=== PATIENT | female | born 1960 | race Caucasian/White ===

== ENCOUNTER 2024-01-31 23:26 | Emergency (ER) | payer BC, SELFPAY ==
[2024-01-31 23:27] VITALS: BP 146/74; BMI 45.1
[2024-01-31 23:31] VITALS: BP 146/74
[2024-02-01] MEDS: NSS 1000 IV (00:19)
[2024-02-01 00:23] LABS: % Basophils 0.9 % (0-2); % Eosinophils 4.3 % (0-6); % Immature Granulocytes 0.4 % (0-0.5); % Lymphocytes 26.8 % (20.5-51.1); % Monocytes 7.5 % (1.7-9.3); % Neutrophils 60.1 % (42.2-75.2); Absolute Basophils 0.1 10^3/uL (0-0.2); Absolute Eosinophils 0.3 10^3/uL (0-0.7); Absolute Lymphocytes 2.1 10^3/uL (1.2-3.4); Absolute Monocytes 0.6 10^3/uL (0.1-0.6); Absolute Neutrophils 4.8 10^3/uL (1.4-6.5); Hematocrit 36.9 % (37.0-47.0); Hemoglobin 13.1 g/dL (12.0-16.0); Mean Corp Hgb Conc. 35.5 g/dL (33.0-37.0); Mean Corpuscular Hgb 30.9 pg (27.0-31.0); Mean Platelet Volume 9.5 fL (7.4-10.4); Nucleated Red Blood Cells % 0 %; Platelet Count 245 10^3/uL (130-400); Red Blood Cell Count 4.24 10^6/uL (4.20-5.40)
--- NOTE | 2024-02-01 00:43 | ED.GENMED ---
History of Present Illness
General
Chief Complaint: Dizziness
Time Seen by Provider: 01/31/24 23:43
History of Present Illness
History of Present Illness:
63-year-old female with history of hypertension presenting to the emergency department for lightheadedness and near syncope. 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
going to pass out. She felt like her heart was racing. Arrival to the hospital, notes that she feels a little bit better. Admits to not eating anything today, had a granola bar and drank about 1 water bottle. Denies any present chest pain or
difficulty breathing. Denies abdominal pain or GI symptoms. Denies fever or any known sick contacts. Denies ever having the symptoms in the past. Denies additional acute
Past History
Past History
ED Past Medical History: HTN; Negative Asthma, Hypercholesterolemia or NIDDM
ED Past Surgical History: None
Social History
Tobacco: Non-smoker
Alcohol: None
Personal:
Living: with family
Employment: Employed
Phy Exam
Physical Exam
Physical Exam:
General: Well-appearing, no clinical signs of dehydration, nontoxic and in no acute distress
HEENT: protecting airway
Neck: appears supple
CV: Normal heart rate, regular rhythm, no evidence of cyanosis
Resp: No accessory muscle use, no increased work of breathing, lungs clear to auscultation bilaterally
Abd: Soft and non-distended, no tenderness to palpation, normal bowel sounds
Extremities: No deformities, no swelling, no erythema
Neuro: alert, no focal neurologic deficit
: deferred
Rectal: deferred
Psych: Normal affect
Skin: Intact
Course
Orders/Labs/Results
Orders:
Orders
01/31/24 23:28
EKG [Electrocardiogram (*1)] Urgent
Reason for Study: Tachycardia
EKG- Treatment ONCE
Complete Blood Count/With Diff Urgent
Comprehensive Metabolic Panel Urgent
01/31/24 23:59
Troponin I Urgent
02/01/24 00:15
0.9% Sodium Chloride 1000 ml [Nss] 1,000 ml IV BOLUS
02/01/24 00:19
COVID-19 Antigen Urgent
Source: Nasal Swab
Abnormal Lab Results
02/01/24
00:13
Hct 36.9 L %
(37.0-47.0)
Potassium 3.2 L mmol/L
(3.5-5.1)
02/01/24 00:13
02/01/24 00:13
Vital Signs
Initial and Last Documented VS:
Initial Vital Signs
Temp Pulse Resp BP
98.2 F 95 23 146/74
01/31/24 23:27 01/31/24 23:27 01/31/24 23:27 01/31/24 23:27
Last Documented Vital Signs
Temp Pulse Resp BP Pulse Ox
98.2 F 98 17 146/74 97
01/31/24 23:27 02/01/24 00:15 02/01/24 00:15 01/31/24 23:31 01/31/24 23:48
MDM/Problems Addressed
MDM/Problems Addressed:
63-year-old female with history of hypertension presenting to the emergency department after a near syncopal episode. Vital signs on arrival are significant for mild tachycardia which resolved without intervention.
On exam patient is well-appearing, no acute distress or discomfort. Patient notes improvement of symptoms upon arrival to the hospital. Patient is some dry mucous membranes, otherwise benign cardiac, pulmonary, abdominal exam. No focal neurologic
deficits. Symptom presentation and physical exam appears most consistent with volume depletion, vasovagal quality to near syncopal episode. Patient notes she only had a granola bar the entire day. EKG obtained, nonischemic, no arrhythmia.
Without concern for acute cardiac abnormality. Will screen with laboratory analysis and treat with IV fluids and reassess for improvement.
01:50 - Labs are unremarkable. Vital signs remained stable and patient continues to express symptom improvement. At this time continue to suspect mild dehydration as etiology of patient's symptoms. Feel stable for discharge with continued
outpatient supportive therapy. Return precautions discussed and patient verbalized understanding
*EKG
Interpreted by ED Provider?: Yes
EKG Intrepretation Date: 02/01/24
EKG Intrepretation Time: 00:50
Interpretation: normal
Comparison EKG: no changes
Heart Rate: 103
Rate: tachycardiac
Rhythm: sinus
Joanna: normal axis
Interval: first degree heart block
QRS Pattern: normal QRS
Ischemia: non-specific ST changes
*Critical Care Note
Total Time (30-74mins, 75-104mins- exclusive of procedures): Not Applicable
ED Attending Note
-
Portions of this chart may have been created with voice recognition software.� Occasional wrong word or��sound alike� substitutions may have occurred due to the inherent limitations of voice recognition software.
Discharge Plan
Departure
Prescriptions:
No Action
cetirizine [Zyrtec] 5 mg Tablet
5 mg PO DAILY
torsemide 10 mg Tablet
10 mg PO DAILY
pantoprazole 40 mg Tablet,Delayed Release (Dr/Ec)
40 mg PO DAILY
fluticasone propionate [Flonase] 50 mcg/actuation [place],Suspension
1 spray INTRANASAL DAILY
lisinopril 2.5 mg Tablet
2.5 mg PO DAILY
Referrals:
Shola Mueller DO [Family Provider] -
Interventions
Interventions:
*Risk Screen - Suicide Last Done: 01/31/24 23:27
*General Assessment Last Done: 01/31/24 23:27
*Neglect/Abuse Screening Last Done: 01/31/24 23:27
ED- Fall Risk Assessment Last Done: 01/31/24 23:27
*ED COVID-19 Vaccine History Last Done: 01/31/24 23:27
ED- Neurological Assessment Last Done: 01/31/24 23:38
ED- Cardiac Assessment Last Done: 01/31/24 23:39
Discharge Date and Time
Print Language: PERSIAN
[2024-02-01 00:44] LABS: COVID-19 Antigen Negative (Negative)
[2024-02-01 00:47] LABS: ALT (SGPT) 21 U/L (0-35); AST (SGOT) 27 U/L (14-36); Albumin 4.6 g/dl (3.5-5.0); Alkaline Phosphatase 94 U/L (38-126); Blood Urea Nitrogen 15 mg/dl (7-17); Calcium 9.2 mg/dl (8.4-10.2); Carbon Dioxide 23 mmol/L (22-30); Chloride 99 mmol/L (98-107); Estimated Creatinine Clearance 90 ml/min; Glucose 99 mg/dl (70-99); Potassium 3.2 mmol/L (3.5-5.1); Sodium 138 mmol/L (135-145); Total Bilirubin 0.6 mg/dl (0.2-1.3); Total Protein 7.2 g/dl (6.3-8.2); eGFR > 60.00
[2024-02-01 00:48] LABS: Troponin I < 0.012 ng/ml
[2024-02-01 02:24] VITALS: BP 113/72
== END 2024-02-01 02:45 | disposition home or self-care (01) ==
LOC: EMR 23:26
PROVIDERS: EMERGENCY PHYSICIAN Student in an Organized Health Care Education/Training Program; FAMILY PHYSICIAN Internal Medicine
DX: R55 Syncope and collapse (principal); E86.0 Dehydration; Z11.52 Encounter for screening for COVID-19
CPT/HCPCS: 99284; 96360; 80053; 84484; 85025; 87811; 93005